=== PATIENT | female | born 1995 | race African-American/Black ===

== ENCOUNTER 2018-06-28 03:25 | Emergency (ER) | payer OTHER ==
[2018-06-28 03:37] VITALS: BP 110/61
== END 2018-06-28 04:42 | disposition left against medical advice (07) ==
LOC: ER 03:25
DX: Z53.21 Procedure and treatment not carried out due to patient leaving prior to being seen by health care provider (principal)

== ENCOUNTER 2018-06-28 18:20 | Emergency (ER) | payer OTHER ==
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
[2018-06-28 20:36] VITALS: BP 99/62
== END 2018-06-28 20:39 | disposition home or self-care (01) ==
LOC: ER 18:20
DX: S09.90XA Unspecified injury of head, initial encounter (principal); R51 Headache; X58.XXXA Exposure to other specified factors, initial encounter; R11.0 Nausea; Z87.81 Personal history of (healed) traumatic fracture
CPT/HCPCS: 99283

== ENCOUNTER 2018-08-11 01:19 | Emergency (ER) | payer SELFPAY ==
--- NOTE | 2018-08-11 02:43 | RADIOLOGY REPORT (SQ) ---
EXAM DESCRIPTION: CT HEAD WITHOUT IV CONTRAST COMPLETED DATE/TME: 08/11/2018 01:30 CLINICAL HISTORY: 23 years, Female, trauma COMPARISON: None. TECHNIQUE: 193 Images stored on PACS. All CT scanners at this facility use dose modulation, iterative reconstruction, and/or weight based dosing when appropriate to reduce radiation dose to as low as reasonably achievable (ALARA). [facility]: Dose Right [facility]: CareDose [facility]: Dose Right [facility]: Teradose 4D [facility]: [employer] LIMITATIONS: None. FINDINGS: Globes intact. Paranasal sinuses and mastoid air cells are unremarkable. No displaced or depressed skull fracture. No intra or extra-axial hemorrhage. CT is limited for evaluation of acute infarct. No CT evidence for large or territorial acute infarct. No mass. No midline shift IMPRESSION: Negative exam TECHNICAL DOCUMENTATION: Quality ID # 436: Final reports with documentation of one or more dose reduction techniques (e.g., Automated exposure control, adjustment of the mA and/or kV according to patient size, use of iterative reconstruction technique) copyright 2011 [employer]- All Rights Reserved
--- NOTE | 2018-08-11 02:43 | RADIOLOGY REPORT (SQ) ---
EXAM DESCRIPTION: CT CERVICAL SPINE WITHOUT IV CONTRAST COMPLETED DATE/TME: 08/11/2018 01:30 CLINICAL HISTORY: 23 years, Female, trauma COMPARISON: None. TECHNIQUE: 244 Images stored on PACS. All CT scanners at this facility use dose modulation, iterative reconstruction, and/or weight based dosing when appropriate to reduce radiation dose to as low as reasonably achievable (ALARA). [facility]: Dose Right [facility]: CareDose [facility]: Dose Right [facility]: Teradose 4D [facility]: [employer] LIMITATIONS: None. FINDINGS: Stable body height and alignment is preserved. The disc spaces are maintained. Surrounding soft tissues are unremarkable IMPRESSION: Negative exam TECHNICAL DOCUMENTATION: Quality ID # 436: Final reports with documentation of one or more dose reduction techniques (e.g., Automated exposure control, adjustment of the mA and/or kV according to patient size, use of iterative reconstruction technique) copyright 2011 [employer]- All Rights Reserved
--- NOTE | 2018-08-11 02:48 | RADIOLOGY REPORT (SQ) ---
EXAM DESCRIPTION: XR SHOULDER 2 OR MORE VIEWS COMPLETED DATE/TME: 08/11/2018 01:30 CLINICAL HISTORY: 23 years, Female, trauma COMPARISON: None. NUMBER OF VIEWS: 3 TECHNIQUE: 3 view right shoulder LIMITATIONS: None. FINDINGS: Negative for acute fracture or dislocation. Soft tissues are unremarkable IMPRESSION: Negative exam copyright 2010 [employer]- All Rights Reserved
[2018-08-11] MEDS ORDERED: KETOROLAC TROMETHAMINE INJ/PF 30 MG/1 ML SDV IM ONE (03:06)
--- NOTE | 2018-08-11 03:12 | ER Document Report ---
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 She says that she also thinks she hit her head and has a headache. Has some neck pain. No pain in the remainder of her back. No pain into the extremities except for the right shoulder. She denies any other injuries. She denies numbness into the hand or weakness into the hands. No other complaints at this time. TRAVEL OUTSIDE OF THE [place] IN LAST 30 DAYS: No - Related Data Allergies/Adverse Reactions: No Known Allergies Allergy (Verified 06/28/18 18:25) Past Medical History - Social History Smoking Status: Unknown if Ever Smoked Frequency of alcohol use: None Drug Abuse: None Family History: Reviewed & Not Pertinent Patient has suicidal ideation: No Patient has homicidal ideation: No Renal/ Medical History: Denies: Hx Peritoneal Dialysis Musculoskeletal Medical History: Reports Hx Musculoskeletal Trauma - Facial fracture Psychiatric Medical History: Reports: Hx Anxiety, Hx Depression, Hx Post Traumatic Stress Disorder Traumatic Medical History: Reports: Hx Fractures - Facial Past Surgical History: Reports: Hx Orthopedic Surgery - Facial surgery for facial fracture, Hx Umbilical Hernia - Immunizations Immunizations up to date: Yes Hx Diphtheria, Pertussis, Tetanus Vaccination: Yes Review of Systems - Review of Systems Notes: My Normal Review Basic REVIEW OF SYSTEMS: CONSTITUTIONAL : Denies fever, chills, or sweats. Denies recent illness. EENT: Denies eye, ear, throat, or mouth pain or symptoms. Denies nasal or sinus congestion. RESPIRATORY: Denies cough, cold, or chest congestion. Denies shortness of breath, difficulty breathing, or wheezing. GASTROINTESTINAL: Denies abdominal pain. Denies nausea, vomiting, or diarrhea. MUSCULOSKELETAL: Right shoulder pain NEUROLOGICAL: Denies altered mental status or loss of consciousness. Has a headache. Denies weakness or paralysis or loss of use of either side. Denies problems with gait or speech. Denies sensory or motor loss. ALL OTHER SYSTEMS REVIEWED AND NEGATIVE. Physical Exam - Vital signs Vitals: Temp Pulse Resp BP Pulse Ox 98.1 F 61 16 124/68 100 08/11/18 01:29 08/11/18 01:29 08/11/18 01:29 08/11/18 01:29 08/11/18 01:29 - Notes Notes: General Appearance: Well nourished, alert, cooperative, no acute distress, no obvious discomfort. Vitals: reviewed, See vital signs table. Head: no swelling or tenderness to the head Eyes: PERRL, EOMI, Conjuctiva clear Mouth: No decreasd moisture Neck: Supple, no midline cervical spine tenderness. No step-offs or deformities. Lungs: No wheezing, No rales, No rhonci, No accessory muscle use, good air exchange bilaterally. Heart: Normal rate, Regular rythm, No murmur, no rub Abdomen: Normal BS, soft, No rigidity, No abdominal tenderness, No guarding, no rebound, no abdominal masses, no organomegaly Extremities: strength 5/5 in all extremities, good pulses in all extremities, extremities are all nontender except for some pain into the right shoulder. Some pain with range of motion of the right shoulder. No obvious deformities. Distal sensation intact in the right hand. Good strength in right hand Skin: warm, dry, appropriate color, no rash Neuro: speech clear, oriented x 3, normal affect, responds appropriately to questions. Cranial nerves II through XII are intact. Distal sensation intact. Patient moves all extremities without difficulty. Course - Re-evaluation Re-evalutation: 08/11/18 04:[address] scan head and neck are negative. X-ray does not show any evidence of fracture or dislocation to the right shoulder. I informed her that she should not be lifting anything heavy or lifting any significant weight with the right arm until she is pain-free. I informed her that she is still not pain-free after 1 week then she should follow-up with orthopedist. Patient agrees with plan will be discharged home. Patient strongly encouraged to return to ER if she has worsening pain, severe headache, vomiting, or feels unwell. Dictation of this chart was performed using voice recognition software; therefore, there may be some unintended grammatical errors. 08/11/18 04:35 - Vital Signs Vital signs: Temp Pulse Resp BP Pulse Ox 98.2 F 65 16 121/65 99 08/11/18 03:37 08/11/18 03:37 08/11/18 03:37 08/11/18 03:37 08/11/18 03:37 Discharge - Discharge Clinical Impression: Fall, Right shoulder strain Condition: Good Disposition: HOME, SELF-CARE Additional Instructions: Please avoid any weightbearing with the right shoulder for at least a week. If you are still having pain after a week then you should follow-up closely with the orthopedist, Dr. Cunningham. I have included his office number and the paperwork. Please return to ER if you have severe headache, vomiting, worsening pain, or feel unwell. Please take Tylenol 500 mg every 4 hours and Motrin 400 mg every 6 hours for pain. Forms: Return to Work
[2018-08-11] MEDS ORDERED: KETOROLAC TROMETHAMINE INJ/PF 30 MG/1 ML SDV IV ONE (03:22)
[2018-08-11 03:38] VITALS: BP 121/65
== END 2018-08-11 03:43 | disposition home or self-care (01) ==
LOC: ER 01:19
DX: S46.911A Strain of unspecified muscle, fascia and tendon at shoulder and upper arm level, right arm, initial encounter (principal); M54.2 Cervicalgia; R51 Headache; W17.89XA Other fall from one level to another, initial encounter; Y93.89 Activity, other specified; Y92.59 Other trade areas as the place of occurrence of the external cause; Y99.0 Civilian activity done for income or pay
CPT/HCPCS: 99284; 96374; 73030; 70450; 72125; J1885

== ENCOUNTER 2018-10-15 07:12 | Emergency (ER) | payer SELFPAY ==
--- NOTE | 2018-10-15 08:55 | ER Document Report ---
ED General - General Chief Complaint: OB Problem (<20wks) Stated Complaint: ABDOMINAL PAIN Time Seen by Provider: 10/15/18 08:23 Primary Care Provider: [facility] [Provider Group] - Follow up in 3-5 days TRAVEL OUTSIDE OF THE [place] IN LAST 30 DAYS: No - HPI Notes: Patient is a 23-year-old female that presents to the emergency department for chief complaint of wanting a confirmation of . Patient states her LMP was the first week of last month. She states it was a normal menstrual cycle for her and she has had normal menstrual cycles leading up to that point. She is not currently on any control. Patient is sexually active. She states she took a home test and came to the emergency room to see what her due date was. She states she has felt more tired than usual and has had some morning nausea. She denies any emesis. Patient did report abdominal pain in triage but denies that to me stating she has just felt more bloated. She denies any vaginal discharge or bleeding. She does states she is urinating more frequently but denies dysuria. Patient is with history of single living child age 6. Past Medical History: PTSD, anxiety Past Surgical History: Facial fracture repair, hernia surgery Social History: Drinks alcohol most days. Denies tobacco and drug use Family History: Reviewed and noncontributory for presenting illness Allergies: Reviewed, see documented allergy list. REVIEW OF SYSTEMS: CONSTITUTIONAL : No fever No chills No diaphoresis No recent illness EENT: No vision changes No congestion No sore throat CARDIOVASCULAR: No chest pain No palpitations RESPIRATORY: No shortness of breath No cough No difficulty breathing GASTROINTESTINAL: No abdominal pain nausea No vomiting No diarrhea GENITOURINARY: No dysuria Urinary frequency No hematuria No difficulty urinating MUSCULOSKELETAL: No back pain No leg pain No arm pain SKIN: No rashes No lesions LYMPHATIC: No swollen, enlarged glands. NEUROLOGICAL: No lightheadedness No headache No weakness No paresthesias PSYCHIATRIC: No anxiety No depression PHYSICAL EXAMINATION: Vital signs reviewed, nursing noted reviewed. GENERAL: Well-appearing, well-nourished and in no acute distress. HEAD: Atraumatic, normocephalic. EYES: Eyes appear normal, extraocular movements intact, sclera anicteric, conjunctiva are normal. ENT: nares patent, oropharynx clear without exudates. Moist mucous membranes. NECK: Normal range of motion, supple without lymphadenopathy LUNGS: Breath sounds clear to auscultation bilaterally and equal. No wheezes rales or rhonchi. HEART: Regular rate and rhythm without murmurs ABDOMEN: Soft, nontender, normoactive bowel sounds. No rebound, guarding, or rigidity. No masses appreciated. EXTREMITIES: Nontender, good range of motion, no pitting or edema. NEUROLOGICAL: No focal neurological deficits. Moves all extremities spontaneously Motor and sensory grossly intact on exam. PSYCH: Normal mood, normal affect. SKIN: Warm, Dry, normal turgor, no rashes or lesions noted on exposed skin - Related Data Allergies/Adverse Reactions: No Known Allergies Allergy (Verified 10/15/18 07:19) Past Medical History - Social History Smoking Status: Never Smoker Family History: Reviewed & Not Pertinent Patient has suicidal ideation: No Patient has homicidal ideation: No Renal/ Medical History: Denies: Hx Peritoneal Dialysis Musculoskeletal Medical History: Reports Hx Musculoskeletal Trauma - Facial fracture Psychiatric Medical History: Reports: Hx Anxiety, Hx Depression, Hx Post Traumatic Stress Disorder Traumatic Medical History: Reports: Hx Fractures - Facial Past Surgical History: Reports: Hx Orthopedic Surgery - Facial surgery for facial fracture, Hx Umbilical Hernia - Immunizations Immunizations up to date: Yes Hx Diphtheria, Pertussis, Tetanus Vaccination: Yes Physical Exam - Vital signs Vitals: Temp Pulse Resp BP Pulse Ox 98.1 F 66 18 131/72 H 100 10/15/18 07:23 10/15/18 07:23 10/15/18 07:23 10/15/18 07:23 10/15/18 07:23 Course - Re-evaluation Re-evalutation: 10/15/18 08:52 Vitals reviewed. Nursing notes reviewed. Patient does have a positive urine test. She is otherwise well-appearing and currently asymptomatic. She did present to the ER complaining of abdominal pain which she describes as a bloating sensation. She is not having any vaginal bleeding or pelvic cramping to suggest ectopic . Patient also wrote chest pain on her triage note when she presented to the ED but when asked about this she points to her epigastrium stating that she has some burning when she is nauseated in the morning. She does not have the sensation currently. Patient is having urinary frequency and UA will be added to evaluate for UTI. I did offer pelvic exam and testing for STDs which patient has declined. Patient states that she came to the emergency room to find out her due date. At this time her LMP was about 4 weeks ago and the likelihood of visualizing anything on ultrasound is low. I do not have any medical reason to necessitate getting ultrasound at this time including concern for ectopic given that she is asymptomatic presently. I did advise that she follow with the [facility] to establish care. She was counseled on stopping her alcohol consumption and beginning to take vitamins. Patient was counseled on return precautions. 10/15/18 09:16 UA negative. Patient still asymptomatic. She will follow with gynecology. - Vital Signs Vital signs: Temp Pulse Resp BP Pulse Ox 98.1 F 66 18 131/72 H 100 10/15/18 07:23 10/15/18 07:23 10/15/18 07:23 10/15/18 07:23 10/15/18 07:23 - Laboratory Laboratory results interpreted by me: 10/15/18 10/15/18 08:00 08:47 Urine Ascorbic Acid 40 H Urine HCG, Qual POSITIVE H Discharge - Discharge Clinical Impression: Qualifiers: Weeks of gestation: less than 8 weeks Qualified Code(s): Z3A.01 - Less than 8 weeks gestation of Condition: Stable Disposition: HOME, SELF-CARE Instructions: ([facility]) Additional Instructions: Please return to the emergency department if you have any worsening, or concern of your symptoms. Please return to the emergency department if you develop chest pain, difficulty breathing, severe abdominal pain, vaginal bleeding, pelvic pain, or ongoing vomiting. Please follow-up with [facility] If you have any questions or concerns do not hesitate to return the emergency department for evaluation. Do not consume alcohol while Begin taking vitamins Increase the amount of water you are drinking daily to prevent dehydration Referrals: [facility] [Provider Group] - Follow up in 3-5 days
[2018-10-15 09:04] LABS: APPEARANCE,URINE SLIGHTLY-CLOUDY; BILIRUBIN,URINE NEGATIVE (NEGATIVE); COLOR,URINE YELLOW; GLUCOSE, URINE NEGATIVE (NEGATIVE); KETONES,URINE NEGATIVE (NEGATIVE); LEUKOCYTE ESTERASE,URINE NEGATIVE (NEGATIVE); NITRITE,URINE NEGATIVE (NEGATIVE); PROTEIN,URINE NEGATIVE (NEGATIVE); UROBILINOGEN,URINE NEGATIVE mg/dL (<2.0)
[2018-10-15 09:27] VITALS: BP 110/70
== END 2018-10-15 09:27 | disposition home or self-care (01) ==
LOC: ER 07:12
DX: O26.891 Other specified pregnancy related conditions, first trimester (principal); R11.0 Nausea; R19.8 Other specified symptoms and signs involving the digestive system and abdomen; R35.0 Frequency of micturition; O26.811 Pregnancy related exhaustion and fatigue, first trimester; Z3A.01 Less than 8 weeks gestation of pregnancy
CPT/HCPCS: 81001; 81025; 99284

== ENCOUNTER 2018-12-19 23:31 | Emergency (ER) | payer SELFPAY ==
[2018-12-20 01:54] LABS: ABSOLUTE EOSINOPHILS # (AUTO) 0.1 10^3/uL (0.0-0.6); ABSOLUTE LYMPHOCYTES (AUTO) 1.7 10^3/uL (0.5-4.7); ABSOLUTE MONOCYTES (AUTO) 0.5 10^3/uL (0.1-1.4); ABSOLUTE NEUT (AUTO) 3.2 10^3/uL (1.7-8.2); BASOPHILS % (AUTO) 0.7 % (0-2); EOSINOPHILS % (AUTO) 1.2 % (0-6); HEMATOCRIT 31.9 % (36.0-47.0); HEMOGLOBIN 10.5 g/dL (12.0-15.5); LYMPHOCYTES % (AUTO) 31.2 % (13-45); MEAN CORPUSCULAR HEMOGLOBIN 27.5 pg (27.0-33.4); MEAN CORPUSCULAR HGB CONC 32.7 g/dL (32.0-36.0); MEAN CORPUSCULAR VOLUME 84 fl (80-97); MONOCYTES % (AUTO) 9.8 % (3-13); PLATELET COUNT 305 10^3/uL (150-450); RED CELL DISTRIBUTION WIDTH 14.9 % (11.5-14.0); SEGMENTED NEUTROPHILS % (AUTO) 57.1 % (42-78); TOTAL CELLS COUNTED % (AUTO) 100 %; WHITE BLOOD COUNT 5.6 10^3/uL (4.0-10.5)
[2018-12-20] MEDS ORDERED: FAMOTIDINE 20 MG TABLET PO ONE (01:55)
[2018-12-20 02:01] LABS: APPEARANCE,URINE SLIGHTLY-CLOUDY; BILIRUBIN,URINE NEGATIVE (NEGATIVE); COLOR,URINE YELLOW; GLUCOSE, URINE NEGATIVE (NEGATIVE); KETONES,URINE TRACE mg/dL (NEGATIVE); LEUKOCYTE ESTERASE,URINE NEGATIVE (NEGATIVE); NITRITE,URINE NEGATIVE (NEGATIVE); PROTEIN,URINE NEGATIVE (NEGATIVE); URINE SPECIFIC GRAVITY 1.011; UROBILINOGEN,URINE NEGATIVE mg/dL (<2.0)
[2018-12-20 02:15] LABS: ALBUMIN 3.9 g/dL (3.5-5.0); ALKALINE PHOSPHATASE 44 U/L (38-126); ANION GAP 9 (5-19); ASPARTATE AMINO TRANSFERASE 21 U/L (14-36); BILIRUBIN,DIRECT 0.3 mg/dL (0.0-0.4); BILIRUBIN,TOTAL 0.4 mg/dL (0.2-1.3); BLOOD UREA NITROGEN 16 mg/dL (7-20); CALCIUM 9.2 mg/dL (8.4-10.2); CARBON DIOXIDE 23 mmol/L (22-30); CHLORIDE 106 mmol/L (98-107); GLUCOSE 89 mg/dL (75-110); POTASSIUM 4.2 mmol/L (3.6-5.0); TOTAL PROTEIN 7.3 g/dL (6.3-8.2)
[2018-12-20 02:17] LABS: ACETAMINOPHEN < 10 ug/mL (10-30); ALCOHOL < 10 mg/dL (NONE DETECTED); SALICYLATE < 1.0 mg/dL (2.0-20.0); URINE AMPHETAMINES SCREEN NEGATIVE; URINE BARBITURATES SCREEN NEGATIVE; URINE BENZODIAZEPINES SCREEN NEGATIVE; URINE COCAINE SCREEN NEGATIVE; URINE MARIJUANA (THC) SCREEN NEGATIVE; URINE METHADONE SCREEN NEGATIVE; URINE PHENCYCLIDINE SCREEN NEGATIVE
--- NOTE | 2018-12-20 03:21 | ER Document Report ---
Addendum entered and electronically signed by CAITIE BOTELLO DO 12/20/18 14:01: Discharge - Discharge Clinical Impression: Anxiety Overdose Qualifiers: Encounter type: initial encounter Injury intent: intentional self-harm Qualified Code(s): T50.902A - Poisoning by unspecified drugs, medicaments and biological substances, intentional self-harm, initial encounter Depression Qualifiers: Depression Type: major depressive disorder Major depression recurrence: unspecified whether recurrent Active/Remission status: currently active Major depression episode severity: severe Psychotic features: without psychotic features Qualified Code(s): F32.2 - Major depressive disorder, single episode, severe without psychotic features Condition: Stable Disposition: HOME, SELF-CARE Additional Instructions: You have been evaluated both medical and behavioral health teams and been deemed appropriate for discharge. You have been provided a local resource list of area providers including mobile crisis contact information. You are highly encouraged to follow-up with outpatient mental health services to establish both therapeutic services and medication management. DEPRESSION: Your evaluation reveals that you have mental depression. While symptoms may be vague, they often include disturbance of sleep, fatigue, loss of appetite, and general loss of interest in life. While depression may be a side effect of drugs, or a reaction to a major change in your life, many cases have no known cause. If depression is acute, and related to a major loss in your life, you can expect it to clear completely with time. If you have been depressed a long time, are prone to repeated bouts of depression or low mood, or have been thinking of suicide, get help. Depression can be treated with anti-depressant medication and counselling. Long-term depression will often take a few weeks to clear, even with appropriate medication. Follow-up care is important. SUICIDAL IDEATION: Suicidal ideation is a common medical term for thoughts about suicide, which may be as detailed as a formulated plan, without the suicidal act itself. Although most people who undergo suicidal ideation do not commit suicide, some go on to make suicide attempts. The range of suicidal ideation varies greatly from fleeting to detailed planning, role playing, and unsuccessful attempts. While thoughts about suicide are common, most people do not carry out serious actions to commit suicide. Based upon your evaluation and discussion with you, we do not believe you are currently at risk to act upon your thoughts of suicide. You have agreed to return to the Emergency Department, at any time, if you feel inclined to act upon your suicidal thoughts. FOLLOW-UP CARE: If you have been referred to a physician for follow-up care, call the physicians office for an appointment as you were instructed or within the next two days. If you experience worsening or a significant change in your symptoms, notify the physician immediately or return to the Emergency Department at any time for re-evaluation. Prescriptions: Buspirone HCl [Buspar 5 mg Tablet] 1 tab PO BID #30 tab Referrals: [facility] [Outside] - Follow up in 3-5 days [facility] [Outside] - Follow up as needed Addendum entered and electronically signed by KAREL CABRERA LCSWA 12/20/18 10:52: Discharge - Discharge Clinical Impression: Anxiety Overdose Qualifiers: Encounter type: initial encounter Injury intent: intentional self-harm Qualified Code(s): T50.902A - Poisoning by unspecified drugs, medicaments and biological substances, intentional self-harm, initial encounter Depression Qualifiers: Depression Type: major depressive disorder Major depression recurrence: unspecified whether recurrent Active/Remission status: currently active Major depression episode severity: severe Psychotic features: without psychotic features Qualified Code(s): F32.2 - Major depressive disorder, single episode, severe without psychotic features Clinical Impression: (Ruled Out): Suicidal ideation Condition: Stable Disposition: HOME, SELF-CARE Additional Instructions: You have been evaluated both medical and behavioral health teams and been deemed appropriate for discharge. You have been provided a local resource list of area providers including mobile crisis contact information. You are highly encouraged to follow-up with outpatient mental health services to establish both therapeutic services and medication management. DEPRESSION: Your evaluation reveals that you have mental depression. While symptoms may be vague, they often include disturbance of sleep, fatigue, loss of appetite, and general loss of interest in life. While depression may be a side effect of drugs, or a reaction to a major change in your life, many cases have no known cause. If depression is acute, and related to a major loss in your life, you can expect it to clear completely with time. If you have been depressed a long time, are prone to repeated bouts of depression or low mood, or have been thinking of suicide, get help. Depression can be treated with anti-depressant medication and counselling. Long-term depression will often take a few weeks to clear, even with appropriate medication. Follow-up care is important. SUICIDAL IDEATION: Suicidal ideation is a common medical term for thoughts about suicide, which may be as detailed as a formulated plan, without the suicidal act itself. Although most people who undergo suicidal ideation do not commit suicide, some go on to make suicide attempts. The range of suicidal ideation varies greatly from fleeting to detailed planning, role playing, and unsuccessful attempts. While thoughts about suicide are common, most people do not carry out serious actions to commit suicide. Based upon your evaluation and discussion with you, we do not believe you are currently at risk to act upon your thoughts of suicide. You have agreed to return to the Emergency Department, at any time, if you feel inclined to act upon your suicidal thoughts. FOLLOW-UP CARE: If you have been referred to a physician for follow-up care, call the physicians office for an appointment as you were instructed or within the next two days. If you experience worsening or a significant change in your symptoms, notify the physician immediately or return to the Emergency Department at any time for re-evaluation. Referrals: [facility] [Outside] - Follow up as needed [facility] [Outside] - Follow up in 3-5 days Original Note: ED General - General Chief Complaint: Suicidal Ideation Stated Complaint: SEIZURE,POSSIBLE OVERDOSE Time Seen by Provider: 12/20/18 01:32 Mode of Arrival: Medic Information source: Patient TRAVEL OUTSIDE OF THE [place] IN LAST 30 DAYS: No - HPI Notes: Patient is a 23-year-old female history of depression, PTSD and anxiety presents to the emergency department with report that she was at work ([employer]) when she thought she was having an anxiety attack. Patient states she felt lightheaded and tingly and anxious and was hyperventilating. Vital signs were stable per EMS. The patient denies any chest pain, difficulty breathing, fever, chills, abdominal pain, constipation, diarrhea, dysuria. No cough or congestion. Patient admits to depression and states that yesterday she took an overdose of what she thought was approximately 40 tablets of 200 mg ibuprofen. Surprisingly, she denies having any abdominal pain or nausea or vomiting or diarrhea related to this ingestion. She denies any coingestants. Patient states that this was in an attempt to harm her self. She took all the ibuprofen she had available to herself. The patient reports previous suicide attempt in middle school. The patient is somewhat nebulous about suicidality. She denies any hallucinations or homicidality. The patient does not see a local counselor. There was no seizure activity or tongue biting or incontinence. - Related Data Allergies/Adverse Reactions: No Known Allergies Allergy (Verified 10/15/18 07:19) Past Medical History - General Information source: Patient - Social History Smoking Status: Current Every Day Smoker Frequency of alcohol use: None Drug Abuse: None Lives with: Friend Family History: Reviewed & Not Pertinent Patient has suicidal ideation: No Patient has homicidal ideation: No Renal/ Medical History: Denies: Hx Peritoneal Dialysis Musculoskeletal Medical History: Reports Hx Musculoskeletal Trauma - Facial fracture Psychiatric Medical History: Reports: Hx Anxiety, Hx Depression, Hx Post Traumatic Stress Disorder Traumatic Medical History: Reports: Hx Fractures - Facial Past Surgical History: Reports: Hx Orthopedic Surgery - Facial surgery for facial fracture, Hx Umbilical Hernia - Immunizations Immunizations up to date: Yes Hx Diphtheria, Pertussis, Tetanus Vaccination: Yes Review of Systems - Review of Systems -: Yes All other systems reviewed and negative Physical Exam - Vital signs Vitals: Temp Pulse Resp BP Pulse Ox 98.2 F 73 19 118/62 100 12/19/18 23:50 12/19/18 23:50 12/19/18 23:50 12/19/18 23:50 12/19/18 23:50 - Notes Notes: PHYSICAL EXAMINATION: GENERAL: Well-appearing, well-nourished and in no acute distress. HEAD: Atraumatic, normocephalic. EYES: Pupils equal round and reactive to light, extraocular movements intact, conjunctiva are normal. ENT: Nares patent, oropharynx clear without exudates. Moist mucous membranes. NECK: Normal range of motion, supple without lymphadenopathy LUNGS: Breath sounds clear to auscultation bilaterally and equal. No wheezes rales or rhonchi. HEART: Regular rate and rhythm without murmurs ABDOMEN: Soft, nontender, nondistended abdomen. No guarding, no rebound. No masses appreciated. Female : deferred Musculoskeletal: Normal range of motion, no pitting or edema. No cyanosis. NEUROLOGICAL: Cranial nerves grossly intact. Normal speech, normal gait. Norm al sensory, motor exams PSYCH: Very flat affect. Slow to respond to questions. Patient reports some loose suicidal ideation and is somewhat nebulous. The patient has good memory recall. She has poor insight. No homicidality. No hallucinations. SKIN: Warm, Dry, normal turgor, no rashes or lesions noted. Course - Re-evaluation Re-evalutation: 12/20/18 03:26 Lab work and studies show no evidence for acidosis or other effects of ibuprofen overdose. There is no evidence for Tylenol overdose or renal insufficiency. Patient is medically cleared for psychiatric evaluation and care. - Vital Signs Vital signs: Temp Pulse Resp BP Pulse Ox 98.3 F 74 15 106/67 100 12/20/18 01:44 12/20/18 01:44 12/20/18 01:44 12/20/18 01:44 12/19/18 23:50 - Laboratory Result Diagrams: 12/20/18 01:34 12/20/18 01:34 Laboratory results interpreted by me: 12/20/18 12/20/18 12/20/18 01:34 01:34 01:34 Hgb 10.5 L Hct 31.9 L RDW 14.9 H Est GFR (Non-Af Amer) 55 L Urine Ketones TRACE H Urine Blood SMALL H Salicylates < 1.0 L Acetaminophen < 10 L - EKG Interpretation by Ne EKG shows normal: Sinus rhythm Additional EKG results interpreted by me: 12/20/18 03:26 EKG is interpreted by me showed normal sinus rhythm heart rate of 60. There is no gross evidence for acute SD or ischemia noted. There is no old EKG available for comparison. Discharge - Discharge Clinical Impression: Suicidal ideation, Anxiety Overdose Qualifiers: Encounter type: initial encounter Injury intent: intentional self-harm Qualified Code(s): T50.902A - Poisoning by unspecified drugs, medicaments and biological substances, intentional self-harm, initial encounter Depression Qualifiers: Depression Type: major depressive disorder Major depression recurrence: unspecified whether recurrent Active/Remission status: currently active Major depression episode severity: severe Psychotic features: without psychotic features Qualified Code(s): F32.2 - Major depressive disorder, single episode, severe without psychotic features Condition: Stable Disposition: PSYCH HOSP/UNIT
--- NOTE | 2018-12-20 09:22 | ER Document Report ---
Doctor's Note Notes: 12/20/18 09:21 As the rounding physician this AM, I assessed the patient's labs, vitals, and records. No concerning findings this morning. Patient denies any acute complaints. Patient is cleared for disposition by behavioral health team 12/20/18 14:00 PHYSICAL EXAMINATION: GENERAL: Well-appearing, well-nourished and in no acute distress. HEAD: Atraumatic, normocephalic. EYES: Pupils equal round extraocular movements intact, conjunctiva are normal. ENT: Nares patent NECK: Normal range of motion LUNGS: No respiratory distress Musculoskeletal: Normal range of motion NEUROLOGICAL: Normal speech, normal gait. PSYCH: Normal mood, normal affect. SKIN: Warm, Dry, normal turgor, no rashes or lesions noted. Patient will be discharged home with BuSpar 5 mg twice daily
--- NOTE | 2018-12-20 10:53 | PSYCHOLOGICAL NOTE ---
Psych Note - Psych Note Date seen by psych provider: 12/20/18 Time seen by psych provider: 09:35 Psych Note: Reason for Consult: Panic attack/ Reported Intentional overdose Consent permission: Maribell girlfriend Patient is a 23-year-old female history of depression, PTSD and anxiety presents to the emergency department with report that she was at work when she thought she was having an anxiety attack. Patient disclosed that her panic attacks come random and last week she had one. She reports the reason she came to [facility] was because she was at work and her work made her come in. She confirms she does not have an outpatient provider and has never been to therapy but was on Zoloft. She states that her doctor in [place] was writing her prescription for Zoloft however it has been a few months since she has been out. She reports that she has been in [place] for 1 year and came here for work. She denies any thoughts of wanting to harm herself and states that she took "40 ibuprofen" yesterday because it was "too much and I had a moment." She confirms she did not need any medical assistance and has had no difficulties with pain, upset stomach or any other side effects from her reported overdose. Clinician asked for confirmation on number of medications at which point she states "I do not know it was a lot may be 20." She states that she does not have custody of her son (her son lives with her family members), that she lives with friends, has been stressed about finances and paying bills. She denies having any concerns at this time and is hoping to be allowed to go home because she has work. Clinician spoke with patient's girlfriend, Maribell, at bedside. She reports she has no concerns for the patient harming herself at this time. She confirms she to be part of the patient's plan of care i.e. no access to medications and weapons and follow through with mental health recommendations. Patient is alert and orientated to person, place, time and circumstance. Mood is overall euthymic with congruent affect; patient reports feeling tired. Patient denies current suicidal and homicidal ideation. Patient reports intentional overdose two days ago; however, provides inconsistent information in regards to amounts taken and denies any symptoms from taking the medications. Delusions are absent behaviors congruent with an intact reality based presentation I organized and linear thought process. Eye contact was well- maintained. Conversational speech is within normal rate, tone and prosody. Intellectual abilities appear to be within the average range. Attention and concentration are good. Insight, judgment, impulse control are fair. 300.02 (F41.1) generalized anxiety disorder; presented to [facility] after panic attack Clinician notes significant cluster B personality traits are noted No medication recommendations at this time Impression\\plan: Patient is cleared from acute psychiatric services. Patient does not meet IVC criteria per [place] GS 122C. Patient denies current thoughts of wanting to harm herself. Patient does report an intentional overdose two days ago; however, provides inconsistent information in regards to amounts taken and denies any symptoms from taking the medications. Patient is provided a local resource list of area providers including mobile crisis contact information. Patient is highly encouraged to follow-up with outpatient mental health services to establish both therapeutic services and medication management. Dr. Crockett was consulted to care management of this patient; attending physicians in agreement with recommendations and disposition.
[2018-12-20 14:27] VITALS: BP 104/48
--- NOTE | 2018-12-20 14:50 | EKG REPORT ---
SEVERITY:- NORMAL ECG - SINUS RHYTHM : Confirmed by: Kwasi Mcnulty 20-Dec-2018 14:49:31
== END 2018-12-20 14:27 | disposition home or self-care (01) ==
LOC: ER 23:31
DX: T50.902A Poisoning by unspecified drugs, medicaments and biological substances, intentional self-harm, initial encounter (principal); F32.2 Major depressive disorder, single episode, severe without psychotic features; F41.9 Anxiety disorder, unspecified; F17.200 Nicotine dependence, unspecified, uncomplicated
CPT/HCPCS: 36415; 80053; 80307; 81001; 84703; 85025; 93005; 93010; 99285

== ENCOUNTER 2019-10-20 12:32 | Emergency (ER) | payer MEDICAID ==
[2019-10-20] MEDS ORDERED: NORMAL SALINE 1000 ML 1,000 ML IV ONE (12:34)
--- NOTE | 2019-10-20 12:37 | ER Document Report ---
ED General - General Chief Complaint: Anxiety Stated Complaint: ANXIETY Time Seen by Provider: 10/20/19 12:34 Notes: HPI: 24-year-old female with past medical history of anxiety and panic attacks who presents today with EMS. 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 She supposedly had a syncopal-like episode with some nonspecific shaking. No postictal period. She did wake up and vomit x2. Patient states this is very similar to similar panic attack she has had in the past. She has no diagnosis of a primary seizure disorder. She denies any current or recent headache, neck pain, chest pain, abdominal pain, fevers, next menstrual periods, or dysuria. She denies any symptoms at this time. ROS: See HPI All other review of systems reviewed and otherwise negative Reviewed vital signs and nursing note as charted by RN. PHYSICAL EXAM: CONSTITUTIONAL: Alert and oriented and responds appropriately to questions. Well-appearing; well-nourished HEAD: Normocephalic; atraumatic EYES: PERRL; no nystagmus, sclerae non-icteric ENT: Normal nose; no rhinorrhea; moist mucous membranes; pharynx without lesions noted NECK: Supple without meningismus; non-tender; no cervical lymphadenopathy, no masses CARD: Regular rate and rhythm; no murmurs; symmetric distal pulses RESP: Normal chest excursion without splinting or tachypnea; breath sounds clear and equal bilaterally; no wheezes, no rhonchi, no rales ABD/GI: Normal bowel sounds; non-distended; soft, non-tender; no palpable organomegaly or masses BACK: The back appears normal and is non-tender to palpation EXT: Normal ROM in all joints; non-tender to palpation; no edema SKIN: No acute lesions noted NEURO: CN 2-12 intact; 5/5 bilateral upper and lower extremity strength with sensation intact to light touch PSYCH: The patient's mood and manner are appropriate. Grooming and personal hygiene are appropriate. TRAVEL OUTSIDE OF THE [place] IN LAST 30 DAYS: No - Related Data Allergies/Adverse Reactions: No Known Allergies Allergy (Verified 10/15/18 07:19) Past Medical History - Social History Smoking Status: Unknown if Ever Smoked Family History: Reviewed & Not Pertinent Renal/ Medical History: Denies: Hx Peritoneal Dialysis Musculoskeletal Medical History: Reports Hx Musculoskeletal Trauma - Facial fracture Psychiatric Medical History: Reports: Hx Anxiety, Hx Depression, Hx Post Traumatic Stress Disorder Traumatic Medical History: Reports: Hx Fractures - Facial Past Surgical History: Reports: Hx Orthopedic Surgery - Facial surgery for facial fracture, Hx Umbilical Hernia - Immunizations Immunizations up to date: Yes Hx Diphtheria, Pertussis, Tetanus Vaccination: Yes Physical Exam - Vital signs Vitals: Temp Pulse Resp BP Pulse Ox 98.9 F 62 14 119/79 100 10/20/19 12:39 10/20/19 12:39 10/20/19 12:39 10/20/19 12:39 10/20/19 12:39 Course - Re-evaluation Re-evalutation: 10/20/19 12:37 Given the history and physical we will place the patient on the monitor and obtain basic labs as well as provide fluids and obtain an EKG. I would like to evaluate for the possibility of acute anemia, electrolyte abnormality, cardiac dysrhythmia, or other causing precipitating event. 10/20/19 13:10 EKG shows heart of 54, normal sinus rhythm, normal axis, no ST elevation or depression. Flattening T waves diffusely. 10/20/19 14:41 Labs as recorded. Still no focal neurological deficits. Slightly decreased white blood cell count with a monocyte differential as recorded. Patient denies any headache, neck pain, chest pain, abdominal pain. Pt will be discharged home with strict return precautions and follow-up with primary care physician. Patient denies a primary seizure disorder. She states she remembers the entire event. She believes she did not lose consciousness. Patient states "these are just part of my anxiety attacks". Patient denies any suicidal homicidal ideations. - Vital Signs Vital signs: Temp Pulse Resp BP Pulse Ox 98.0 F 62 17 112/67 100 10/20/19 13:03 10/20/19 12:39 10/20/19 14:00 10/20/19 13:04 10/20/19 13:04 - Laboratory Result Diagrams: 10/20/19 13:30 10/20/19 13:30 Laboratory results interpreted by me: 10/20/19 10/20/19 13:30 13:30 WBC 3.6 L [place] % (Auto) 13.1 H Sodium 136.9 L Potassium 3.4 L Discharge - Discharge Clinical Impression: Anxiety reaction Condition: Good Disposition: HOME, SELF-CARE Additional Instructions: Come back immediately for any increased anxiety, concern, repeat episodes, fevers or vomiting, or any other acute problems. Please follow-up with the physician as discussed. You can use the [facility] if you do not h ave a primary doctor.
[2019-10-20 13:40] LABS: ABSOLUTE EOSINOPHILS # (AUTO) 0.1 10^3/uL (0.0-0.6); ABSOLUTE LYMPHOCYTES (AUTO) 1.1 10^3/uL (0.5-4.7); ABSOLUTE MONOCYTES (AUTO) 0.5 10^3/uL (0.1-1.4); ABSOLUTE NEUT (AUTO) 1.9 10^3/uL (1.7-8.2); BASOPHILS % (AUTO) 0.6 % (0-2); EOSINOPHILS % (AUTO) 1.7 % (0-6); HEMATOCRIT 39.2 % (36.0-47.0); HEMOGLOBIN 13.2 g/dL (12.0-15.5); LYMPHOCYTES % (AUTO) 31.6 % (13-45); MEAN CORPUSCULAR HEMOGLOBIN 29.4 pg (27.0-33.4); MEAN CORPUSCULAR HGB CONC 33.7 g/dL (32.0-36.0); MEAN CORPUSCULAR VOLUME 87 fl (80-97); MONOCYTES % (AUTO) 13.1 % (3-13); PLATELET COUNT 275 10^3/uL (150-450); RED BLOOD COUNT 4.49 10^6/uL (3.72-5.28); RED CELL DISTRIBUTION WIDTH 13.9 % (11.5-14.0); TOTAL CELLS COUNTED % (AUTO) 100 %; WHITE BLOOD COUNT 3.6 10^3/uL (4.0-10.5)
[2019-10-20 13:56] LABS: BLOOD UREA NITROGEN 13 mg/dL (7-20); CALCIUM 9.2 mg/dL (8.4-10.2); CARBON DIOXIDE 25 mmol/L (22-30); GLUCOSE 101 mg/dL (75-110); POTASSIUM 3.4 mmol/L (3.6-5.0)
[2019-10-20 14:02] LABS: ANION GAP 6 (5-19); CHLORIDE 106 mmol/L (98-107)
[2019-10-20 15:12] VITALS: BP 113/72
--- NOTE | 2019-10-20 21:54 | EKG REPORT ---
SEVERITY:- BORDERLINE ECG - SINUS RHYTHM BORDERLINE LEFT AXIS DEVIATION BORDERLINE T ABNORMALITIES, DIFFUSE LEADS : Confirmed by: Shelby Benitez MD 20-Oct-2019 21:53:46
== END 2019-10-20 15:13 | disposition home or self-care (01) ==
LOC: ER 12:32
DX: F41.1 Generalized anxiety disorder (principal); R11.10 Vomiting, unspecified
CPT/HCPCS: 93005; 99284; 96360; 96361; 36415; 85025; 81025; 80048; 93010; J7030

== ENCOUNTER 2020-03-12 19:09 | Emergency (ER) | payer MEDICAID, OTHER ==
[2020-03-12] MEDS ORDERED: IBUPROFEN 800 MG TABLET PO ONE (20:34)
[2020-03-12] MEDS ORDERED: METHOCARBAMOL 500 MG TABLET PO ONE (20:34)
[2020-03-12] MEDS ORDERED: LIDOCAINE 5% (700 MG) TRANSDERMAL ADH..PATCH TP ONE (20:34)
--- NOTE | 2020-03-12 20:38 | ER Document Report ---
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 Patient denies any traumatic injury. She complains of tenderness and swelling to the right neck and upper back area. Associated Symptoms: denies: Fever, Headache, Vomiting Exacerbated by: Movement Relieved by: Denies Similar symptoms previously: No Recently seen / treated by doctor: No - ROS ROS below otherwise negative: Yes Systems Reviewed and Negative: Yes All other systems reviewed and negative - CONSTITUTIONAL Constitutional: DENIES: Fever - NEURO Neurology: DENIES: Headache - CARDIOVASCULAR Cardiovascular: DENIES: Chest pain - RESPIRATORY Respiratory: DENIES: Coughing - REPRODUCTIVE Reproductive: DENIES: : - MUSCULOSKELETAL Musculoskeletal: REPORTS: Back Pain, Neck Pain. DENIES: Extremity pain - DERM Skin Color: Normal Skin Problems: None Past Medical History - General Information source: Patient - Social History Smoking Status: Never Smoker Frequency of alcohol use: None Drug Abuse: None Occupation: Dancing Family History: Reviewed & Not Pertinent Renal/ Medical History: Denies: Hx Peritoneal Dialysis Musculoskeletal Medical History: Reports Hx Musculoskeletal Trauma - Facial fracture Psychiatric Medical History: Reports: Hx Anxiety, Hx Depression, Hx Post Traumatic Stress Disorder Traumatic Medical History: Reports: Hx Fractures - Facial Past Surgical History: Reports: Hx Orthopedic Surgery - Facial surgery for facial fracture, Hx Umbilical Hernia - Immunizations Immunizations up to date: Yes Hx Diphtheria, Pertussis, Tetanus Vaccination: Yes Vertical Provider Document - CONSTITUTIONAL Agree With Documented VS: Yes Exam Limitations: No Limitations General Appearance: WD/WN, No Apparent Distress - INFECTION CONTROL TRAVEL OUTSIDE OF THE [place] IN LAST 30 DAYS: No - HEENT HEENT: Atraumatic, Normocephalic - NECK Neck: Normal Inspection, Supple. negative: Lymphadenopathy-Left, Lymphadenopathy-Right Notes: No meningismus - RESPIRATORY Respiratory: Breath Sounds Normal, No Respiratory Distress - CARDIOVASCULAR Cardiovascular: Regular Rate, Regular Rhythm Pulses: Normal: Radial - BACK Back: Abnormal Inspection - Right trapezius muscle tenderness with spasm - MUSCULOSKELETAL/EXTREMETIES Musculoskeletal/Extremeties: ELA BURNETTE - NEURO Level of Consciousness: Awake, Alert, Appropriate Motor/Sensory: No Motor Deficit - DERM Integumentary: Warm, Dry, No Rash Course - Re-evaluation Re-evalutation: Patient with trapezius muscle tenderness with spasm, no spinal midline tenderness step-off or deformity, no meningeal irritation symptoms. Will treat symptomatically and refer to orthopedics for any persistent pain or problems. Discharge - Discharge Clinical Impression: Strain of right trapezius muscle Qualifiers: Encounter type: initial encounter Qualified Code(s): S46.811A - Strain of other muscles, fascia and tendons at shoulder and upper arm level, right arm, initial encounter Condition: Stable Disposition: HOME, SELF-CARE Instructions: Muscle Relaxers ([facility]), Muscle Strain ([facility]), Warm Packs ([facility]) Additional Instructions: Return immediately for any new or worsening symptoms Followup with your primary care provider, call tomorrow to make a followup appointment Prescriptions: Lidocaine [Lidoderm 5% (700 mg) Transdermal Patch] 1 patch TP DAILY PRN #10 adh..patch PRN Reason: Naproxen [Naprosyn 250 Nmg Tablet] 1 tab PO BID #14 tablet Methocarbamol [Robaxin 500 Mg Tablet] 500 mg PO QID PRN #24 tablet PRN Reason: Forms: Return to Work Referrals: [facility] [Provider Group] - Follow up as needed
[2020-03-13 00:15] VITALS: BP 110/69
== END 2020-03-12 20:50 | disposition home or self-care (01) ==
LOC: ER 19:09
DX: S29.012A Strain of muscle and tendon of back wall of thorax, initial encounter (principal); X58.XXXA Exposure to other specified factors, initial encounter; M54.2 Cervicalgia; M62.830 Muscle spasm of back
CPT/HCPCS: 99283; J3490 ×3